=== PATIENT | female | born 1930 | race Caucasian/White ===

== ENCOUNTER → 2017-01-03 | Outpatient (CLI) | payer MEDICARE ==
[~2017-01-03] MED LIST: AMIODARONE HCL100 MG PO; APRESOLINE PO; ASPIRIN81 MG PO; AVAPRO PO; CARDIZEM PO; CATAPRES-TTS-20.2 M1 PO; CLONIDINE HCL0.1 MG PO; CLONIDINE HCL0.3 MG PO; CLONIDINE PO; CORDARONE200 M1 PO; COZAAR100 MG PO; DICLOFENAC PO; E-400 C-500 & B1 TAB PO; ELIQUIS2.5 MG PO; GABAPENTIN300 M2 PO; HYDRALAZINE HC100 MG PO; HYDRALAZINE HCL25 MG PO; HYDROCHLOROTHIA25 MG PO; ICAP; ICAPS AREDS1 TAB.SA PO; LEVOTHROID125 MCG PO; LOSARTAN POTAS100 MG PO; NEURONTIN300 MG PO; OCUVITE TABLET1 TAB PO; OMEGA-3100 MG PO; SULAR34 MG PO; SYNTHROID PO; SYNTHROID137 MCG PO; TIROSINT125 MCG PO; TOPROL XL PO
--- NOTE | ~2017-01-03 | CT52 ---
[facility] A Service of [facility] & [facility] RADIOLOGY TEXT RESULTS PATIENT: MARYAM HUGHES [facility] [birth year] UNIT #: [id number] AGE: [address]: Eva Castaneda APRN SEX: F ORDER DR: [id number] [facility] [address] [place], [place] [address] [id number] O MR#: [id number] Acc #: [id number] NAME: MARYAM HUGHES : 1930 SEX: F STUDY DATE/TIME: 01/03/2017 9:35 UNIT: [facility] ROOM: STUDY DESCRIPTION: CT Cervical Spine Wo Cont Attending Physician: Eva Castaneda A.P.R.N. Referring Physician: Eva Castaneda A.P.R.N. Ordering Physician: Eva Castaneda A.P.R.N. Primary Care Physician: Eva Castaneda A.P.R.N. MEDICAL IMAGING REPORT This report is preliminary unless electronic signature is present EXAM Cervical spine CT, no contrast, 01/03/2017. COMPARISON None. PROCEDURE Axial cervical spine CT without contrast with multiplanar reformats. This CT exam was performed with one or more of the following radiation dose reduction techniques: automatic exposure control, adjustment of mA and/or kV according to patient size, and iterative reconstruction. HISTORY Left arm and left leg radiculopathy. Left arm and left leg numbness and tingling paresthesias for about 7 weeks. FINDINGS There is a degenerative reversal of lordosis. There is no rosangela or retrolisthesis. There is some discogenic and facet and uncovertebral degenerative change, but there is no fracture or bone erosion or destruction. The paraspinous soft tissues are normal. At C2-3, there is mild right foraminal narrowing, but the canal and left foramen are normal. At C3-4, there is minimal canal narrowing and mild bilateral foraminal narrowing. At C4-5, there is mild canal narrowing. There is moderate left and minimal if any right foraminal narrowing. At 5-6, there is no substantial canal stenosis and minimal right foraminal narrowing, but at least moderate left foraminal narrowing. [facility] A Service of [facility] & [facility] RADIOLOGY TEXT RESULTS PATIENT: MARYAM HUGHES LOCATION: [facility] : [birth year] UNIT #: [id number] AGE: [address]: Eva Castaneda APRN SEX: F ORDER DR: At 6-7, there is minimal canal narrowing and borderline to mild right foraminal narrowing and kyke-gp-laxptpyo left foraminal narrowing. At 7-1, the canal is normal and there is minimal right and mild left foraminal narrowing. IMPRESSION 1. Cervical degenerative changes, but no acute abnormality. No substantial appearing canal stenosis at any level. See above for level by level details. 2. Incidental note made of atherosclerotic vascular calcifications at the carotid bifurcations bilaterally. Dictated by... Manoj Riley M.D. THIS IS AN ELECTRONICALLY VERIFIED REPORT Manoj Riley M.D. at 01/04/2017 4:50 PM BRENNAN/roz TD: 01/04/2017 16:29 JOB #: [id number] MEDICAL IMAGING REPORT Page 1 of 1 COPY
--- NOTE | ~2017-01-03 | CT98 ---
[facility] A Service of [facility] & [facility] RADIOLOGY TEXT RESULTS PATIENT: MARYAM HUGHES [facility] : [birth year] UNIT #: [id number] AGE: [address]: Eva Castaneda APRN SEX: F ORDER DR: [id number] [facility] [address] [place], [place] [address] [id number] O MR#: [id number] #: [id number] NAME: MARYAM HUGHES : 1930 SEX: F STUDY DATE/TIME: 01/03/2017 9:37 UNIT: [facility] ROOM: STUDY DESCRIPTION: CT Lumbar Spine Wo Cont Attending Physician: Eva Castaneda A.P.R.N. Referring Physician: Eva Castaneda A.P.R.N. Ordering Physician: Eva Castaneda A.P.R.N. Primary Care Physician: Eva Castaneda A.P.R.N. MEDICAL IMAGING REPORT This report is preliminary unless electronic signature is present EXAM Lumbar spine CT HISTORY Back pain radiating down the left leg with numbness and tingling for the past 7 weeks. TECHNIQUE Thin-section imaging was obtained from the lower thoracic spine to the sacrum and evaluated at bone and soft tissue windows with multiplanar reformats. This CT exam was performed with one or more of the following radiation dose reduction techniques: Automatic exposure control, adjustment of mA and/or kV according to patient size, and iterative reconstruction. FINDINGS At T12-L1, the disc is unremarkable. At L1-2, there is minimal concentric disc bulging. 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 Central stenosis is moderately severe at all four of these levels. Bony foraminal stenosis is most severe at L3-4 on the right and L4-5 on the left. Posterior facet degenerative changes are moderately severe at the lower three lumbar levels. No fractures are seen and no destructive bone lesions are noted. No paraspinous masses are seen. 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 Comparison with an MRI of the lumbar spine from 2007 shows progression of degenerative change at L2-3 and L5-S1, with little change at L3-4 and L4-5. Facet hypertrophy has also progressed significantly throughout the gmj-pa-tkcnh lumbar levels. IMPRESSION Degenerative disc and facet disease as described above showing progression STS. [facility] A Service of [facility] & [facility] RADIOLOGY TEXT RESULTS PATIENT: MARYAM HUGHES LOCATION: [facility] : [birth year] UNIT #: [id number] AGE: [address]: Eva Castaneda APRN SEX: F ORDER DR: since 2007. No acute bony abnormalities are seen. Central stenosis is moderate at L2-3, L3-4 and L4-5 and mild at L5-S1. Foraminal stenosis is most prominent on the right at L3-4 and on the left at L4-5. Dictated by... Pedro Ga M.D. THIS IS AN ELECTRONICALLY VERIFIED REPORT Pedro Ga M.D. at 01/08/2017 2:13 PM FRANCK/ever TD: 01/04/2017 00:14 JOB #: [id number] MEDICAL IMAGING REPORT Page 1 of 1 COPY
== END | disposition home or self-care (01) ==
LOC: CCAT 09:02
DX: M51.16 Intervertebral disc disorders with radiculopathy, lumbar region (principal); M48.06 Spinal stenosis, lumbar region; M48.07 Spinal stenosis, lumbosacral region; M47.22 Other spondylosis with radiculopathy, cervical region
CPT/HCPCS: 72125; 72131